=== PATIENT | female | born 1975 | race Caucasian/White ===

== ENCOUNTER 2024-01-20 06:37 | Day surgery (SDC) | payer OTHER, SELFPAY ==
[2024-01-20] VITALS (9 sets, daily range): BP systolic 125–149; BP diastolic 70–88; PULSE 79–95; RESP 12–16; TEMP 36.4–37.3; O2SAT 93–100
--- NOTE | 2024-01-20 07:22 | WPDANESEPPF ---
Anes - Initial Pre Proc Eval Procedure: Operation Date: 01/20/24 08:30 Proposed Procedures p Abdominoplasty with Liposuction - Christian Jacobson MD Date/Time: 01/20/24 07:22 Surgeon: Christian Jacobson MD Pre Op Diagnosis: Skin Laxity Patient Data Age: 48 Gender: F Height: 1.75 m Weight: 84.4 kg Last Vital Signs Temp 37.3 C 01/20/24 07:14 Pulse 84 01/20/24 07:14 Resp 16 01/20/24 07:14 BP 149/88 H 01/20/24 07:14 Pulse Ox 100 01/20/24 07:14 O2 Del Method Room Air 01/20/24 07:14 Allergies Allergy/AdvReac Type Severity Reaction Status Date / Time No Known Allergies Allergy Verified 01/20/24 07:13 Home Medications Medication Instructions Recorded Confirmed Type escitalopram oxalate 10 mg tablet 10 mg PO DIRECTED 01/12/24 01/20/24 History Patient hx anesthesia problems: none Family hx anesthesia problems: none Results Review: All pre-operative results and documents have been reviewed as part of the pre-operative evaluation. [facility] Social History Social History (Updated 01/20/24 @ 08:26 by Gerardo Hines DO) Smoking status: Former smoker Tobacco type: e-cigarettes/vaping Additional smoking assessment comments: quit 6 weeks ago Alcohol intake: current Alcohol use details: 3-5+drinks/day Substance use type: does not use Living arrangements: with family Anes - Eval Final PreProcedure Day of Procedure 01/20/24 07:22 Patient weight: overweight Heart: regular rate and rhythm Lungs: clear to auscultation Airway: Mallampati scale class II Neurological: alert and oriented Last oral intake: >/= 8 hours ASA classification: III Emergent: no Anesthetic plan: proceed Anesthesia type and monitoring: general ETT and standard monitoring Results Review: All pre-operative results and documents have been reviewed as part of the pre-operative evaluation. Informed Consent: The patient's anesthetic plan and its attendant risks and benefits were discussed with the patient/family/POA. Questions were solicited and answers provided to the satisfaction of the patient/family/POA.
[2024-01-20] MEDS: LACTATED RINGERS 1,000 ML 30 ML IV CONT ×3 (07:28→12:56)
--- NOTE | 2024-01-20 08:28 | WPDHPUPDATE1 ---
History and Physical Update Update Date/Time: 01/20/24 08:28 History and Physical has been reviewed, including an updated exam of the patient. There are NO changes in the patient's condition. Risks, benefits, and alternatives have been discussed and questions answered. Patient agrees to proceed with procedure.
--- NOTE | 2024-01-20 08:30 | W.PM.PROC2 ---
Procedure Note - Detailed Date of Procedure 01/20/24 Pre-op Diagnosis Skin Laxity Post-op Diagnosis Same Procedure Performed Progressive tension abdominoplasty with suction lipectomy Surgeon Christian Jacobson MD Anesthesia General Findings Tissue removed: 912 grams Lipoaspirate: 2900 cc Diastasis: 5 cm Description of Procedure They are here today for the above procedures. Previously and again today the risks, benefits, alternatives were discussed in extensive detail. I wanted them to be very realistic about the risks involved as well as expectations. We discussed aftercare and what to monitor for. I was very upfront about the risks of wound breakdown leading to loss of skin, open wounds, and need for additional procedures with permanent abdominal deformity. We discussed DVT/PE risks and management. Made sure answered all of their questions to their satisfaction today and consent was obtained. They were marked in the preoperative holding area with their verification. The patient was taken to the operating room. Anesthesia was provided by anesthesiology. A Mendenhall catheter was started. Placed prone on the operating room table with care taken to protect from injury. Prepped and draped in a standard sterile fashion. A surgical time-out was taken. Stab incisions were made and tumescent solution was infiltrated. Once adequate time was allowed for hemostasis a 5mm basket and 3mm multi hole cannula were utilized to complete suction lipectomy based on S.A.F.E. technique in multiple planes and passes. Suction lipectomy continued to result based on pre-operative planning, intra-operative observation, and rolling pinch test which were in full agreement. Patient was then placed supine with care taken to protect from injury. I placed the patient in a flexed position to verify the upper and lower markings would reach. I then placed supine. A thorough abdominal examination was completed. Stab incisions were made and tumescent solution infiltrated. Stab incisions were made and tumescent solution was infiltrated. Once adequate time was allowed for hemostasis a 5mm basket and 3mm multi hole cannula were utilized to complete suction lipectomy based on S.A.F.E. technique in multiple planes and passes. Suction lipectomy continued to result based on pre-operative planning, intra-operative observation, and rolling pinch test which were in full agreement. A 10 blade was used to make the upper incision. I continued dissection down to the level of fascia. Elevated just what was necessary for repair of the diastasis. I then again flexed the bed to verify the upper skin flap would reach the lower markings without tension. Once verified I placed her supine once again and a 10 blade used to make the lower incision. I elevated up to level the umbilicus and left the umbilicus intact on a well-vascularized stalk. The intervening tissue was removed. A 2 mm blunt cannula with 0.5% bupivacaine was injected deep to the fascia bilaterally. I plicated the diastasis recti using 0 PDO Stratafix barbed suture. This was in 2 separate layers using 2 separate sutures as well. After the patient was flexed (below) plicated the fascia with 0 PDO Stratafix in two separate layers. The patient was flexed and starting from superior to inferior began plication using 2-0 Vicryl to obliterate all space in a standard progressive tension fashion. At the umbilicus I marked out the location of the skin and inset this with 3-0 Monocryl and 4-0 Vicryl. I continued the remainder of the plication using 2-0 Vicryl until I reached my lower planned scar line. I trimmed any excess skin of the upper flap making sure this was a tension-free closure. 15 Tenzin drain was placed. I then approximated using a 3 point suture with 2-0 Vicryl followed by 2-0 PDO Stratafix, 3-0 Stratafix ,running subcuticular 4-0 Monocryl, and tissue glue. Fluffs and an abdominal binder were placed. The p
[2024-01-20] MEDS: ceFAZolin SODIUM 2 GM/20 ML SW SYRINGE IV PUSH (08:33)
[2024-01-20] MEDS: TRANEXAMIC ACID 1,000 MG/10 ML AMPUL 1000 MG IV PUSH (08:40)
[2024-01-20] MEDS: LACTATED RINGERS IRRIG 1,000 ML, LIDOCAINE HCL 1% LOCAL INJ 50 ML, EPINEPHrine HCL INJ ... INFILTRATE (10:48)
[2024-01-20] MEDS: BUPIVACAINE/EPINEPHRINE 0.5% 50 ML VIAL 60 ML INFILTRATE (10:55)
[2024-01-20] MEDS: ONDANSETRON INJ 4 MG/2 ML VIAL IV PUSH (13:30)
--- NOTE | 2024-01-20 14:10 | WPDANESPN ---
Anes - Prog Note Post-Op Date/Time: 01/20/24 14:10 Cardiovascular status: normal Respiratory status: normal Airway patency: baseline Mental status: baseline Post-Op hydration status: normal Vital Signs: Last Vital Signs Temp 36.4 C L 01/20/24 12:56 Pulse 86 01/20/24 13:59 Resp 14 01/20/24 13:59 BP 135/79 01/20/24 13:59 Pulse Ox 96 01/20/24 13:59 O2 Del Method Room Air 01/20/24 13:59 O2 Flow Rate 4 01/20/24 13:11 Pain Score (VAS): 2 Post-procedural complaints: none Patient Feedback: Patient satisfied with anesthetic care. Other Findings: Patient vital signs back to baseline. Patient denies nausea and vomiting. Patient's pain under control. Patient OK for discharge.
[2024-01-20] MEDS: SCOPOLAMINE 1 MG PATCH 1 PATCH TRANSDERM (14:15)
[2024-01-20] MEDS: oxyCODONE HCL (*CRX) 5 MG TAB IR PO (14:20)
== END 2024-01-20 15:01 | disposition home or self-care (01) ==
PROVIDERS: Visit Provider Surgery Plastic and Reconstructive Surgery
PROC: (CPT 15830; principal; 2024-01-20 08:30)
DX: L90.8 Other atrophic disorders of skin (principal)
CPT/HCPCS: 15830